=== PATIENT | female | born 1945 | race Caucasian/White ===

== ENCOUNTER → 2017-01-25 | Outpatient (CLI) | payer MEDICARE | LOC: RAD 08:56 | PROVIDERS: ATTEND Physician Assistant | DX: R42 Dizziness and giddiness (principal) | CPT/HCPCS: 70450 ==

== ENCOUNTER → 2019-02-16 | Outpatient (CLI) | payer MEDICARE ==
--- NOTE | 2019-02-20 09:33 | RADIOLOGY REPORT (SQ) ---
EXAM DESCRIPTION: VENOUS BILATERAL LOWER COMPLETED DATE/TIME: 02/16/2019 10:01 am REASON FOR STUDY: VENOUS INSUFFICENCY I87.2 VENOUS INSUFFICIENCY (CHRONIC) (PERIPHERAL) COMPARISON: None. TECHNIQUE: Dynamic and static russo scale and color images acquired of both lower extremity venous sy stems. Selected spectral images acquired with additional compression and augmentation maneuvers. Imag es stored on PACS. LIMITATIONS: None. FINDINGS: RIGHT LEG COMMON FEMORAL AND FEMORAL: Normal phasicity, compression and augmentation. No visualized echogenic m aterial on russo scale. No defects on color images. POPLITEAL: Normal compression and augmentation. No visualized echogenic material on russo scale. No de fects on color images. CALF VESSELS: Normal compression and augmentation. No visualized echogenic material on russo scale. No defects on color image. GSV AND SSV: Normal compression. No visualized echogenic material on russo scale. No defects on color images. ANY DEEP VENOUS INSUFFICIENCY: No reflux on Valsalva. ANY EVIDENCE OF POPLITEAL CYST: No. OTHER: No other significant finding. LEFT LEG COMMON FEMORAL AND FEMORAL: Normal phasicity, compression and augmentation. No visualized echogenic m aterial on russo scale. No defects on color images. POPLITEAL: Normal compression and augmentation. No visualized echogenic material on russo scale. No de fects on color images. CALF VESSELS: Normal compression and augmentation. No visualized echogenic material on russo scale. No defects on color images. GSV AND SSV: Normal compression. No visualized echogenic material on russo scale. No defects on color images. ANY DEEP VENOUS INSUFFICIENCY: No reflux on Valsalva. ANY EVIDENCE POPLITEAL CYST: No. OTHER: No other significant finding. IMPRESSION: NO EVIDENCE DVT OR SVT IN EITHER LEG. TECHNICAL DOCUMENTATION: JOB ID: [id number] [employer]- All Rights Reserved Reading location - IP/workstation name: [email or web address]
== END ==
LOC: SP 07:22
PROVIDERS: ATTEND Surgery
DX: I87.2 Venous insufficiency (chronic) (peripheral) (principal)
CPT/HCPCS: 93970